=== PATIENT | male | born 1935 | race Caucasian/White ===

== ENCOUNTER → 2017-03-12 | Outpatient (CLI) | payer OTHER | LOC: BMCIMAGING 14:02 | PROVIDERS: ATTEND Internal Medicine | DX: S82.832A Other fracture of upper and lower end of left fibula, initial encounter for closed fracture (principal) ==

== ENCOUNTER → 2017-04-10 | Outpatient (CLI) | payer OTHER | LOC: BMCIMAGING 08:10 | PROVIDERS: ATTEND Podiatrist Foot & Ankle Surgery | DX: S82.832D Other fracture of upper and lower end of left fibula, subsequent encounter for closed fracture with routine healing (principal) ==

== ENCOUNTER → 2018-01-09 | Outpatient (CLI) | payer OTHER | LOC: BHFA 13:15 | PROVIDERS: ATTEND Internal Medicine Cardiovascular Disease | DX: I25.10 Atherosclerotic heart disease of native coronary artery without angina pectoris (principal) ==

== ENCOUNTER → 2018-01-10 | Outpatient (CLI) | payer OTHER | LOC: BHFA 09:30 | PROVIDERS: ATTEND Internal Medicine Cardiovascular Disease | DX: I25.10 Atherosclerotic heart disease of native coronary artery without angina pectoris (principal); I48.0 Paroxysmal atrial fibrillation | CPT/HCPCS: 78452; 93017; A9500; J2785 ==

== ENCOUNTER 2018-02-21 05:10 | Observation (INO) | payer OTHER ==
[2018-02-21] MEDS ORDERED: NS 1,000 ML IV ONE (05:15)
--- NOTE | 2018-02-21 05:18 | EDPHY ---
H & P Time Seen by Provider: 02/21/18 05:16 HPI/ROS: HPI CHIEF COMPLAINT: Chest pain epigastric pain. HISTORY OF PRESENT ILLNESS: Very pleasant 82-year-old male, history of coronary artery disease with multiple stents, additionally has a right-sided chest pacemaker, additionally atrial fib on Eliquis, and hypertension he presents emergency room with pain in his chest epigastric region. He states this woke him from sleep around 4:00 a.m. Rather severe mainly located in the epigastric region. He did not go anywhere. He denies it radiating into his lower abdomen or his back, denies radiating up significantly into his chest it was located as a dull ache in the epigastric region. He states the pain is rather severe it has since resolved since arrival. He states it lasted about an hour. Past Medical History: Coronary artery disease with stents, AFib on Eliquis, hypertension, pacemaker Past Surgical History: Right chest pacemaker, coronary artery disease with stents Social History: Denies daily use of drugs alcohol tobacco. Family History: Noncontributory ROS REVIEW OF SYSTEMS: A comprehensive 10 point review of systems is otherwise negative aside from elements mentioned in the history of present illness. Exam Constitutional appears well nontoxic no acute distress, triage nursing summary reviewed, vital signs reviewed, awake/alert. Eyes normal conjunctivae and sclera, EOMI, PERRLA. HENT normal inspection, atraumatic, moist mucus membranes, no epistaxis, neck supple/ no meningismus, no raccoon eyes. Respiratory clear to auscultation bilaterally, normal breath sounds, no respiratory distress, no wheezing. Cardiovascular rate normal, regular rhythm, no murmur, no edema, distal pulses normal. Gastrointestinal soft, non-tender, no rebound, no guarding, normal bowel sounds, no distension, no pulsatile mass. Genitourinary no CVA tenderness. Musculoskeletal no midline vertebral tenderness, full range of motion, no calf swelling, no tenderness of extremities, no meningismus, good pulses, neurovascularly intact. Skin pink, warm, & dry, no rash, skin atraumatic. Neurologic awake, alert and oriented x 3, AAOx3, moves all 4 extremities equally, motor intact, sensory intact, CN II-XII intact, normal cerebellar, normal vision, normal speech. Psychiatric normal mood/affect. Heme/Lymph/Immune no lymphadenopathy. Differential diagnosis includes but is not limited to: ACS, atypical chest pain , pneumothorax, pneumonia, pulmonary embolism, aortic dissection, congestive heart failure, tumor, musculoskeletal pain, esophageal pain, GERD, peptic ulcer disease, pancreatitis Medical Decision Making: Plan for this patient IV establishment with EKG, full director of cardiac rehabilitation, EKG to rule out acute coronary syndrome, check troponin, BNP, D -dimer and coags. Chest x-ray. He is chest pain-free upon arrival. Will give full-dose aspirin. Re-evaluation: EKG interpretation by me on record in [email or web address] system. Impression time of EKG 5:20 a.m., this is a ventricularly paced rhythm without any significant ST elevation. Similar to previous EKG dated 06/18/2016. ED x-ray chest one view negative for acute cardiopulmonary disease. 0646: Patient re-evaluated this time, he is chest pain-free and does not have any significant chest pain however he has significant cardiac risk factors which includes coronary artery disease with multiple stents, pacemaker hypertension AFib and age. I think it is reasonable to admit him today for observation and further cardiac risk stratification and rule out. His initial troponin is negative. Spoke with the hospitalist service they agree to admit this patient. Patient be admitted for further cardiac risk stratification. He agrees for admission. Source: Patient, EMS - Personal History Tetanus Vaccine Date: 09/2010 - Medical/Surgical History Hx Asthma: No Hx Chronic Respiratory Disease: No Hx Diabetes: No Hx Cardiac Disease: Yes Hx Renal Disease: No Hx Cirrhosis: No Hx Alcoholism: No Hx HIV/AIDS: No Hx Splenectomy or Spleen Trauma: No Other PMH: CAD, 3 stents,pacemaker, htn, prostate [place], [place]/ fib - Social History Smoking Status: Never smoked Constitutional: Initial Vital Signs Temperature (C) 36.6 C 02/21/18 05:10 Heart Rate 73 02/21/18 05:10 Respiratory Rate 18 02/21/18 05:10 Blood Pressure 155/89 H 02/21/18 05:10 O2 Sat (%) 98 02/21/18 05:10 O2 Delivery Mode Room Air O2 (L/minute) 2 Allergies/Adverse Reactions: Sulfa (Sulfonamide Antibiotics) Allergy (Verified 02/21/18 07:58) Other-Enter Comments Home Medications: Medication Instructions Recorded Cholecalciferol Vit D3 [Vitamin D3 2,000 units PO DAILY 06/18/16 2000 units tab (OTC)] Cyanocobalamin [Vitamin B12 (*)] 1,000 mcg PO DAILY 06/18/16 Omeprazole 20 mg PO DAILY 06/18/16 Acetaminophen [Tylenol 325mg (*)] 325 mg PO DAILY PRN 02/21/18 Apixaban [Eliquis] 5 mg PO BID 02/21/18 Carvedilol [Coreg (*)] 3.125 mg PO BID 02/21/18 Losartan/Hydrochlorothiazide 1 each PO DAILY 02/21/18 [Losartan-Hctz 100-12.5 mg Tab] Rosuvastatin Calcium [Crestor 20mg 20 mg PO DAILY 02/21/18 (*)] Vitamin B Complex [Vitamin B 1 each PO DAILY 02/21/18 Complex (OTC)] Medical Decision Making - Data Points Laboratory Results: Laboratory Results 02/21/18 05:10 02/21/18 05:10 Medications Given: Discontinued Medications Aspirin Buffered (Aspirin Ec) 325 mg PO EDNOW ONE Stop: 02/21/18 05:21 Last Admin: 02/21/18 06:24 Dose: Not Given Sodium Chloride (Ns) 1,000 mls @ 0 mls/hr IV EDNOW ONE; Wide Open PRN Reason: Protocol Stop: 02/21/18 05:16 Last Admin: 02/21/18 06:00 Dose: 1,000 mls Departure - Departure Disposition: [facility] Inpatient Acute Clinical Impression: Chest pain Qualifiers: Chest pain type: unspecified Qualified Code(s): R07.9 - Chest pain, unspecified Condition: Fair
[2018-02-21] MEDS ORDERED: ASPIRIN EC 325 MG TAB PO ONE (05:20)
--- NOTE | 2018-02-21 05:22 | CPEKG ---
Heart Rate: 60 RR Interval: 1000 P-R Interval: 148 QRSD Interval: 114 QT Interval: 468 QTC Interval: 468 P [place]: 227 QRS [place]: 20 T Wave [place]: -58 EKG Severity - ABNORMAL ECG - EKG Impression: VENTRICULAR-PACED COMPLEXES EKG Impression: NONSPECIFIC INTRAVENTRICULAR CONDUCTION DELAY EKG Impression: BORDERLINE ST DEPRESSION, DIFFUSE LEADS Electronically Signed By: Rancho Rowe 21-Feb-2018 07:18:27
[2018-02-21 05:34] LABS: PLATELET COUNT 217 10^3/uL (150-400)
[2018-02-21 05:37] LABS: INR 1.07 (0.83-1.16); PROTIME(PATIENT) 14.1 SEC (12.0-15.0)
[2018-02-21 05:43] LABS: CREATINE KINASE 158 IU/L (0-224)
[2018-02-21] MEDS ORDERED: ACETAMINOPHEN 325 MG TAB PO PRN (07:02)
[2018-02-21] MEDS ORDERED: ONDANSETRON 4 MG/2 ML VIAL IVP PRN (07:02)
[2018-02-21] MEDS ORDERED: ONDANSETRON DISINTEGRATING 4 MG TAB PO PRN (07:02)
--- NOTE | 2018-02-21 07:17 | PDGENHP ---
History and Physical - Chief Complaint Chest pain - History of Present Illness 82 yo M w/ hx of CAD and AF s/p PPM presents with chest pain. Patient states he awoke from sleep with severe lower chest, upper abdominal pain. The intense pain last 30-45 minutes and was associated with diaphoresis. The pain resolved en route to the hospital after receiving aspirin. He states the pain was not exactly like his last MD but on that occasion his angina did manifest as upper abdominal pain as well. He is chest pain free at the time of my evaluation. History Information - Allergies/Home Medication List Allergies/Adverse Reactions: Sulfa (Sulfonamide Antibiotics) Allergy (Verified 05/21/16 12:03) Home Medications: Losartan/Hydrochlorothiazide [Hyzaar 100-12.5 Tablet] 1 tab PO DAILY@ [Last Taken 06/18/16 08:00] Ascorbic Acid [Vitamin C 500 mg (*)] 1,000 mg PO DAILY 04/28/15 [Last Taken 08:00] Aspirin [Aspirin 81mg (*)] 81 mg PO DAILY 05/30/15 [Last Taken 06/17/16 08:00] Herbals/Supplements -Info Only 1 ea PO DAILY 05/30/15 [Last Taken 06/17/16 08:00 ] Multivitamins [Multivitamin (*)] 1 each PO DAILY 05/30/15 [Last Taken 06/17/16 08:00] Diltiazem ER 120 mg PO DAILY 06/18/16 [Last Taken 06/18/16 08:00] Prilosec 20 mg 20 mg PO DAILY 06/18/16 [Last Taken 06/17/16 08:00] Savaysa 60 mg PO DAILY 06/18/16 [Last Taken 06/16/16 08:00] Vitamin B-12 1,000 mcg PO DAILY 06/18/16 [Last Taken 06/17/16 08:00] Vitamin D3 2,000 units PO DAILY 06/18/16 [Last Taken 06/17/16 08:00] Eliquis 02/21/18 [Last Taken Unknown] I have personally reviewed and updated: family history, medical history - Past Medical History atrial fibrillation, coronary artery disease - Surgical History Reports: pacemaker/AICD - Family History Positive for: CAD - Social History Smoking Status: Never smoked Review of Systems Review of Systems: ROS: 10pt was reviewed & negative except for what was stated in HPI & below Physical Exam Physical Exam: Temp Pulse Resp BP Pulse Ox 36.6 C 52 L 18 122/78 H 97 02/21/18 05:30 02/21/18 06:00 02/21/18 06:00 02/21/18 06:00 02/21/18 06:00 Constitutional: no apparent distress, not in pain Eyes: PERRL, EOMI Ears, Nose, Mouth, Throat: moist mucous membranes, no oral mucosal ulcers Cardiovascular: regular rate and rhythym, systolic murmur Respiratory: no respiratory distress, clear to auscultation Gastrointestinal: normoactive bowel sounds, soft, non-tender abdomen Skin: warm, normal color Musculoskeletal: full muscle strength, no muscle tenderness Neurologic: AAOx3, CN II-XII Intact Psychiatric: interacting appropriately, not anxious Lab Data & Imaging Review 02/21/18 05:10 02/21/18 05:10 WBC 7.86 10^3/uL (3.80-9.50) 02/21/18 05:10 RBC 4.20 10^6/uL (4.40-6.38) L 02/21/18 05:10 Hgb 12.6 g/dL (13.7-17.5) L 02/21/18 05:10 Hct 38.8 % (40.0-51.0) L 02/21/18 05:10 MCV 92.4 fL (81.5-99.8) 02/21/18 05:10 MCH 30.0 pg (27.9-34.1) 02/21/18 05:10 MCHC 32.5 g/dL (32.4-36.7) 02/21/18 05:10 RDW 13.6 % (11.5-15.2) 02/21/18 05:10 Plt Count 217 10^3/uL (150-400) 02/21/18 05:10 MPV 9.7 fL (8.7-11.7) 02/21/18 05:10 Neut % (Auto) 39.8 % (39.3-74.2) 02/21/18 05:10 Lymph % (Auto) 45.4 % (15.0-45.0) H 02/21/18 05:10 [place] % (Auto) 10.3 % (4.5-13.0) 02/21/18 05:10 Eos % (Auto) 3.9 % (0.6-7.6) 02/21/18 05:10 Baso % (Auto) 0.5 % (0.3-1.7) 02/21/18 05:10 Nucleat RBC Rel Count 0.0 % (0.0-0.2) 02/21/18 05:10 Absolute Neuts (auto) 3.12 10^3/uL (1.70-6.50) 02/21/18 05:10 Absolute Lymphs (auto) 3.57 10^3/uL (1.00-3.00) H 02/21/18 05:10 Absolute Monos (auto) 0.81 10^3/uL (0.30-0.80) H 02/21/18 05:10 Absolute Eos (auto) 0.31 10^3/uL (0.03-0.40) 02/21/18 05:10 Absolute Basos (auto) 0.04 10^3/uL (0.02-0.10) 02/21/18 05:10 Absolute Nucleated RBC 0.00 10^3/uL (0-0.01) 02/21/18 05:10 Immature Gran % 0.1 % (0.0-1.1) 02/21/18 05:10 Immature Gran # 0.01 10^3/uL (0.00-0.10) 02/21/18 05:10 PT 14.1 SEC (12.0-15.0) 02/21/18 05:10 INR 1.07 (0.83-1.16) 02/21/18 05:10 APTT 25.8 SEC (23.0-38.0) 02/21/18 05:10 D-Dimer < 0.27 ug/mLFEU (0.00-0.50) 02/21/18 05:10 Sodium 145 mEq/L (135-145) 02/21/18 05:10 Potassium 3.5 mEq/L (3.3-5.0) 02/21/18 05:10 Chloride 101 mEq/L (97-110) 02/21/18 05:10 Carbon Dioxide 31 mEq/l (22-31) 02/21/18 05:10 Anion Gap 13 mEq/L (8-16) 02/21/18 05:10 BUN 20 mg/dL (7-23) 02/21/18 05:10 Creatinine 1.1 mg/dL (0.7-1.3) 02/21/18 05:10 Estimated GFR > 60 02/21/18 05:10 Glucose 111 mg/dL (70-100) H 02/21/18 05:10 Calcium 9.4 mg/dL (8.5-10.4) 02/21/18 05:10 Magnesium 2.3 mg/dL (1.6-2.3) 02/21/18 05:10 Total Bilirubin 0.4 mg/dL (0.1-1.4) 02/21/18 05:10 Conjugated Bilirubin 0.4 mg/dL (0.0-0.5) 02/21/18 05:10 Unconjugated Bilirubin 0.0 mg/dL (0.0-1.1) 02/21/18 05:10 AST 27 IU/L (17-59) 02/21/18 05:10 ALT 31 IU/L (21-72) 02/21/18 05:10 Alkaline Phosphatase 69 IU/L (38-126) 02/21/18 05:10 Creatine Kinase 158 IU/L (0-224) 02/21/18 05:10 CK-MB (CK-2) Fraction 2.21 ng/mL (0.00-3.19) 02/21/18 05:10 Troponin I 0.017 ng/mL (0.000-0.034) 02/21/18 05:10 NT-Pro-B Natriuret Pep 1470 pg/mL (0-450) H 02/21/18 05:10 Total Protein 6.8 g/dL (6.3-8.2) 02/21/18 05:10 Albumin 4.1 g/dL (3.5-5.0) 02/21/18 05:10 Lipase 209 IU/L (23-300) 02/21/18 05:10 Visualized and Interpreted Chest x-ray results: Yes Chest X-Ray results: no infiltrate Visualized and Interpreted EKG results: Yes EKG Interpretation: Positive for: other (V-paced) Assessment & Plan Assessment: 82 yo M w/ hx of CAD and AF p/w chest pain. Plan: 1. Chest pain - Severe lower chest, upper abdominal pain that awoke him from sleep. He states this is similar to last MD. Initial troponin in ED negative, currently chest pain free. ECG is V-paced. - Admit to PCU for observation - Monitor on telemetry, trend cardiac enzymes - Would consult cardiology to decide next steps noting prior history 2. CAD - Prior MD with stents placed in 2010, 2012, and again in 2014. - Acute work-up as above 3. AF - s/p PPM, V-paced on admission. Diet - NPO pending ACS r/o Code - Full Ppx - SCDs Dispo - Admit under observation status
--- NOTE | 2018-02-21 10:21 | PDCARCONS ---
Cardiology Consult Reason for Consult: Mid epigastric pain Chief Complaint: No complaints at this time. Mid epigastric pain last night Requesting Physician: Hospital Service History of Present Illness: 82-year-old male well known to Cardiovascular Service history of multivessel PCI most recently in 2014, history of atrial fibrillation with permanent pacemaker, in the setting of hypertension hyperlipidemia. Patient has been in relatively good health. He was last seen in December at which time he had extensive cardiovascular workup including an echocardiogram showing stable cardiac function with ejection fraction 55%. Tricuspid regurgitation was moderate. He had a nuclear stress test at that time which revealed an inferior scar without demonstrable ischemia. He went on to have cataract surgery which was uncomplicated. He has been doing relatively well. Last evening he awoke with mid abdominal discomfort. This was a burning pain. It felt like heartburn though little bit more intense. It was not associated with shortness of breath nausea vomiting or diaphoresis. It resolved after 45 min. Light of his prior history came to the emergency department for further evaluation. He has been pain-free. At this point he denies chest pain, PND, orthopnea. He has no palpitations syncope or near syncope. He has had some shortness of breath with exertion but unchanged. Recent cardiovascular workup: Echocardiogram on 01/09/2018 revealing normal left ventricular size and function. Right ventricular systolic pressure is 34 mm of mercury. Nuclear stress test January 10 revealed an inferior scar with no ischemia. Last coronary angiogram March of 2015 revealing patent LAD circumflex artery stents with new lesion in the proximal RCA. He received a stent at that time. History Information - Allergies/Home Medication List Allergies/Adverse Reactions: Sulfa (Sulfonamide Antibiotics) Allergy (Verified 02/21/18 07:58) Other-Enter Comments Home Medications: Cholecalciferol Vit D3 [Vitamin D3 2000 units tab (OTC)] 2,000 units PO DAILY [Last Taken 02/20/18] Cyanocobalamin [Vitamin B12 (*)] 1,000 mcg PO DAILY 06/18/16 [Last Taken ] Omeprazole 20 mg PO DAILY 06/18/16 [Last Taken 02/20/18] Acetaminophen [Tylenol 325mg (*)] 325 mg PO DAILY PRN 02/21/18 [Last Taken Unknown] Apixaban [Eliquis] 5 mg PO BID 02/21/18 [Last Taken 02/20/18 09:00] Carvedilol [Coreg (*)] 3.125 mg PO BID 02/21/18 [Last Taken 02/19/18] Losartan/Hydrochlorothiazide [Losartan-Hctz 100-12.5 mg Tab] 1 each PO DAILY [Last Taken 02/20/18] Rosuvastatin Calcium [Crestor 20mg (*)] 20 mg PO DAILY 02/21/18 [Last Taken ] Vitamin B Complex [Vitamin B Complex (OTC)] 1 each PO DAILY 02/21/18 [Last Taken 02/20/18] I have personally reviewed and updated: family history, medical history, social history, surgical history Past Medical History: - Past Medical History atrial fibrillation, coronary artery disease, hypertension, hyperlipidemia - Surgical History Reports: pacemaker/AICD, coronary stent - Family History Positive for: non-pertinent - Social History Smoking Status: Never smoked Cardiac History - Cardiac History Past Cardiac History: PCI, PACEMAKER Cardiac Risk Factors: hypertension (>140/90), lipidemia Timing/Duration: Minutes Severity Scale: 8 Location: epigastric Activities at Onset: rest Associated Symptoms: denies symptoms Physical Exam Physical Exam: Temp Pulse Resp BP Pulse Ox 36.6 C 51 L 18 137/66 H 99 02/21/18 05:30 02/21/18 09:45 02/21/18 09:45 02/21/18 09:45 02/21/18 09:45 O2 (L/minute) 2 Constitutional: no apparent distress, appears nourished Eyes: PERRL Cardiovascular: regular rate and rhythym, no murmur, rub, or gallop, systolic murmur, No JVD Peripheral Pulses: 2+: carotid (R), carotid (L), femoral (R), femoral (L), dorsalis-pedis (R), dorsalis-pedis (L) Respiratory: no respiratory distress, no rales or rhonchi Gastrointestinal: normoactive bowel sounds, soft, non-tender abdomen, no palpable masses Genitourinary: no bladder fullness Skin: warm, normal color, abrasion, No rash Musculoskeletal: full muscle strength Neurologic: AAOx3, No facial droop Psychiatric: interacting appropriately, not anxious Lymph, Heme, Immunologic: no cervical LAD, no supraclavicular LAD Lab and Imaging 02/21/18 05:10 02/21/18 05:10 WBC 7.86 10^3/uL (3.80-9.50) 02/21/18 05:10 RBC 4.20 10^6/uL (4.40-6.38) L 02/21/18 05:10 Hgb 12.6 g/dL (13.7-17.5) L 02/21/18 05:10 Hct 38.8 % (40.0-51.0) L 02/21/18 05:10 MCV 92.4 fL (81.5-99.8) 02/21/18 05:10 MCH 30.0 pg (27.9-34.1) 02/21/18 05:10 MCHC 32.5 g/dL (32.4-36.7) 02/21/18 05:10 RDW 13.6 % (11.5-15.2) 02/21/18 05:10 Plt Count 217 10^3/uL (150-400) 02/21/18 05:10 MPV 9.7 fL (8.7-11.7) 02/21/18 05:10 Neut % (Auto) 39.8 % (39.3-74.2) 02/21/18 05:10 Lymph % (Auto) 45.4 % (15.0-45.0) H 02/21/18 05:10 [place] % (Auto) 10.3 % (4.5-13.0) 02/21/18 05:10 Eos % (Auto) 3.9 % (0.6-7.6) 02/21/18 05:10 Baso % (Auto) 0.5 % (0.3-1.7) 02/21/18 05:10 Nucleat RBC Rel Count 0.0 % (0.0-0.2) 02/21/18 05:10 Absolute Neuts (auto) 3.12 10^3/uL (1.70-6.50) 02/21/18 05:10 Absolute Lymphs (auto) 3.57 10^3/uL (1.00-3.00) H 02/21/18 05:10 Absolute Monos (auto) 0.81 10^3/uL (0.30-0.80) H 02/21/18 05:10 Absolute Eos (auto) 0.31 10^3/uL (0.03-0.40) 02/21/18 05:10 Absolute Basos (auto) 0.04 10^3/uL (0.02-0.10) 02/21/18 05:10 Absolute Nucleated RBC 0.00 10^3/uL (0-0.01) 02/21/18 05:10 Immature Gran % 0.1 % (0.0-1.1) 02/21/18 05:10 Immature Gran # 0.01 10^3/uL (0.00-0.10) 02/21/18 05:10 PT 14.1 SEC (12.0-15.0) 02/21/18 05:10 INR 1.07 (0.83-1.16) 02/21/18 05:10 APTT 25.8 SEC (23.0-38.0) 02/21/18 05:10 D-Dimer < 0.27 ug/mLFEU (0.00-0.50) 02/21/18 05:10 Sodium 145 mEq/L (135-145) 02/21/18 05:10 Potassium 3.5 mEq/L (3.3-5.0) 02/21/18 05:10 Chloride 101 mEq/L (97-110) 02/21/18 05:10 Carbon Dioxide 31 mEq/l (22-31) 02/21/18 05:10 Anion Gap 13 mEq/L (8-16) 02/21/18 05:10 BUN 20 mg/dL (7-23) 02/21/18 05:10 Creatinine 1.1 mg/dL (0.7-1.3) 02/21/18 05:10 Estimated GFR > 60 02/21/18 05:10 Glucose 111 mg/dL (70-100) H 02/21/18 05:10 Calcium 9.4 mg/dL (8.5-10.4) 02/21/18 05:10 Magnesium 2.3 mg/dL (1.6-2.3) 02/21/18 05:10 Total Bilirubin 0.4 mg/dL (0.1-1.4) 02/21/18 05:10 Conjugated Bilirubin 0.4 mg/dL (0.0-0.5) 02/21/18 05:10 Unconjugated Bilirubin 0.0 mg/dL (0.0-1.1) 02/21/18 05:10 AST 27 IU/L (17-59) 02/21/18 05:10 ALT 31 IU/L (21-72) 02/21/18 05:10 Alkaline Phosphatase 69 IU/L (38-126) 02/21/18 05:10 Creatine Kinase 158 IU/L (0-224) 02/21/18 05:10 CK-MB (CK-2) Fraction 2.21 ng/mL (0.00-3.19) 02/21/18 05:10 Troponin I 0.017 ng/mL (0.000-0.034) 02/21/18 05:10 NT-Pro-B Natriuret Pep 1470 pg/mL (0-450) H 02/21/18 05:10 Total Protein 6.8 g/dL (6.3-8.2) 02/21/18 05:10 Albumin 4.1 g/dL (3.5-5.0) 02/21/18 05:10 Lipase 209 IU/L (23-300) 02/21/18 05:10 EKG Interpretation: Positive for: other (ventricular pacing without changes) A/P Assessment: Impression: 82-year-old male known severe multivessel coronary artery disease with history of multivessel revascularization most recently in 2014 status post extensive cardiovascular workup in early December presenting with an atypical episode of mid epigastric pain. After 45 min of discomfort pain resolved spontaneously. There are no metabolic evidence of acute coronary syndrome with negative troponin and a stable EKG. He is currently pain-free. Symptoms most consistent with GI etiology. Recommendations are for continued aggressive secondary prevention. He is on excellent medical therapy with clinical follow-up by Dr. Chiu in 2-3 weeks. No further cardiac evaluation at this time. Hypertension hyperlipidemia well managed. Pacemaker working well. He is appropriately anticoagulated on Eliquis for atrial fibrillation. Patient reports his anemia is stable. I can see no reason to admit him at this time. Would recommend outpatient cardiovascular follow-up. Review of Systems Review of Systems: - Review of Systems Constitutional: denies: chills, fever, malaise EENTM: no symptoms reported Respiratory: shortness of breath. denies: cough, wheezing Cardiac: no symptoms reported Gastrointestinal/Abdominal: abdominal pain. denies: diarrhea, nausea, vomiting , black stools, blood streaked stools Genitourinary: no symptoms Musculoskelatal: no symptoms Skin: no symptoms Neurological: no symptoms Hematologic/Lymphatic: no symptoms reported Immunologic/allergic: no symptoms reported All Other Systems: Reviewed and Negative
--- NOTE | 2018-02-21 12:23 | PDDCSUM ---
Discharge Summary Discharge Summary: HPI/Hospital Course: This is a 82 yo male who was admitted by the hospitalist service from the E.D. due to Chest pain and abd pain since last night. It was not associated with SOB or diaphoresis. He has a history of multivessel PCI most recently in 2014, history of atrial fibrillation with permanent pacemaker, in the setting of hypertension hyperlipidemia. He has a recent Echo from December which showed EF of 55%. He had a nuclear stress test at that time which revealed an inferior scar without demonstrable ischemia. A cardiology evaluation was obtained prior to transition from the ER. Symptoms have resolved. He denies chest pain, PND, orthopnea. He has no palpitations syncope or near syncope. He has had some shortness of breath with exertion but unchanged. His w/u has been negative and Cardiology has recommended discharge given the negative w/u and no further symptoms. He will f/u with Kyleigh Chiu in 2-3 weeks. His symptoms are more likely c/w a GI etiology but at this time he has no sx's. Hypertension hyperlipidemia well managed. Pacemaker working well. He is appropriately anticoagulated on Eliquis for atrial fibrillation. DDX: #Chest pain #hx of CAD #HTN #Chronic AC Exam: NAD AAOX3 RRR CTAB S/NT/ND NO LE EDEMA MEDS: SEE MED REC TOTAL TIME SPENT ON D/C IS 35 MINS
[2018-02-21 13:16] VITALS: BP 152/84
== END 2018-02-21 13:15 | disposition home or self-care (01) ==
LOC: EDUNIT#
PROVIDERS: ADMIT Student in an Organized Health Care Education/Training Program; ATTEND Student in an Organized Health Care Education/Training Program
DX: R07.9 Chest pain, unspecified (principal); R10.13 Epigastric pain; E86.9 Volume depletion, unspecified; I10 Essential (primary) hypertension; E78.5 Hyperlipidemia, unspecified; I48.91 Unspecified atrial fibrillation; Z95.5 Presence of coronary angioplasty implant and graft; Z95.0 Presence of cardiac pacemaker; Z85.46 Personal history of malignant neoplasm of prostate; Z86.79 Personal history of other diseases of the circulatory system
CPT/HCPCS: 71045; 93005; 96360; 99285; G0378

== ENCOUNTER → 2018-03-10 | Outpatient (CLI) | payer OTHER ==
[~2018-03-10] MED LIST: GADOBUTROL 10 ML VIAL IVP ONE
== END ==
LOC: FIMAGING 14:50
PROVIDERS: ATTEND Psychiatry & Neurology Neurology
DX: G31.9 Degenerative disease of nervous system, unspecified (principal); R94.02 Abnormal brain scan; M50.30 Other cervical disc degeneration, unspecified cervical region; M48.02 Spinal stenosis, cervical region
CPT/HCPCS: 70553; 72141; A9585

== ENCOUNTER → 2018-04-10 | Outpatient (CLI) | payer OTHER | LOC: FIMAGING 12:36 | PROVIDERS: ATTEND Psychiatry & Neurology Neurology | DX: G95.89 Other specified diseases of spinal cord (principal); M51.34 Other intervertebral disc degeneration, thoracic region; M48.04 Spinal stenosis, thoracic region; N28.1 Cyst of kidney, acquired | CPT/HCPCS: A9585 ==

== ENCOUNTER → 2019-02-26 | Outpatient (CLI) | payer OTHER | LOC: FIMAGING 13:17 ==